=== PATIENT | male | born 1970 | race Native Hawaiian/Other Pacific Islander ===

== ENCOUNTER 2019-03-05 10:15 | Emergency (ER) | payer OTHER ==
[~2019-03-05] VITALS: Ht 200.7 cm; Wt 70.3 kg
[2019-03-05 10:15] VITALS: TEMP 97.9
[2019-03-05 11:25] LABS: SODIUM 138 mmol/L (136-145)
[2019-03-05 12:07] LABS: PLATELET COUNT 346 K/uL (142-355)
[2019-03-05 13:00] VITALS: BP 110/64
== END 2019-03-05 13:30 | disposition home or self-care (01) ==
LOC: ED 10:40
PROVIDERS: Family Medicine
DX: R07.89 Other chest pain (principal)
CPT/HCPCS: 80053; 81000; 82550; 82553; 84484; 85027; 93005; 99284